=== PATIENT | male | born 1995 | race Caucasian/White ===

== ENCOUNTER 2022-11-13 05:36 | Outpatient (CLI) | payer SELFPAY | END 2022-11-13 05:37 | disposition critical access hospital (66) | LOC: EMS 05:36 | DX: I46.9 Cardiac arrest, cause unspecified (principal) | CPT/HCPCS: A0425; A0429 ==

== ENCOUNTER 2022-11-13 05:52 | Emergency (ER) | payer SELFPAY ==
[2022-11-13 06:10] VITALS: BP 116/91
[2022-11-13] MEDS ORDERED: NALOXONE HCL NASAL SPRAY KIT NAS STA (06:18)
--- NOTE | 2022-11-13 06:18 | ED Physician Documentation ---
PD HPI ALTERED MENTAL STATUS - Stated complaint Stated Complaint: OD - Chief complaint Chief Complaint: Cardiac - Additional information Additional information: HPI/ROS is very limited , as patient is adamant on leaving even prior to my eval uation. ALYSSA. HPI from information given by patient as well as EMS report. Patient says he was offered something to smoke, patient says "blue stuff" (per patient), by a female acquaintance earlier erika . Patient says he is confident the substance was fentanyl. He says he has never used any illicit drugs/substances in the past. He next remembers waking up on scene with EMS attending to him. EMS says that friend had called 911 due to patient being found unconscious, unresponsive, and not breathing. CPR was reportedly started prior to EMS arrival by friends with 911 instruction to do so. EMS found patient unresponsive and apneic, administered narcan intravenously with gradual but steady improvement in mental status. EMS called to ED and I took this call regarding transport; EMS indicated to me that patient was AAOx2 and declining transport to ED. I advised EMS to strongly encourage patient to allow EMS to bring him to ED , but that he can refuse provided he achieves AAOx3. I advised them to recontact me if he continues to refuse but is not AAOx3. EMS was able to convince patient of the import of coming to ED for this event. By the time I was able to evaluate patient in ED, I find him AAOx3, having ripped out his LUE IV immediately prior to my entry (there were many drops of his blood splattered on the floor around him). He apologized and then immediately demanding to leave ED. Nonetheless, he was willing to provide the HPI above. He says he is not having any symptoms, "I feel fine" (per patient). Review of Systems Unable to obtain: Other (demanding to leave but answers a very few ROS questions) Respiratory: denies: Dyspnea Psychiatric: denies: Depressed, Suicidal PD PAST MEDICAL HISTORY - Past Medical History Past Medical History: No - Allergies Allergies/Adverse Reactions: Allergies Allergy/AdvReac Type Severity Reaction Status Date / Time No Known Drug Allergies Allergy Verified 11/13/22 06:10 PD ED PE NORMAL - Vitals Vital signs reviewed: Yes - General General: Alert and oriented X 3, No acute distress, Well developed/nourished - HEENT HEENT: PERRL, EOMI - Cardiac Cardiac: No murmur - Respiratory Respiratory: No respiratory distress, Clear bilaterally PD ED PE EXPANDED - Cardiac Cardiac: Tachy, Regular Rhythm Results - Vitals Vitals: Oxygen O2 Source Room air PD Medical Decision Making - ED course Complexity details: considered differential, d/w patient ED course: Patient repeatedly insisting on leaving ED shortly after ED arrival. Despite this, he is cooperative with brief exam and answers some HPI/ROS questions. He is polite but firm in wanting to leave. He exhibits willingness to listen to my concerns regarding this case/scenario, particularly that the narcan (reversal agent) saved his life tonight , but that it might wear off before the underlying effects of fentanyl (particularly some increasingly common forms of fentanyl, such as sufentanyl, carfentanyl) wear off. In other words, if he leaves now, his level of consciousness could again decrease along with his respiratory rate, blood pressure, and pulse, culminating in . He expresses understanding of this, and does seem frightened by this, but still insists on leaving. He says he will be watched by friends tonight, such as a friend who is in [place] waiting to drive patient home. Patient is provided with a nasal Narcan kit and instructed on its use. I instructed him to contact his PMD to arrange for next available appointment to discuss this event and explore options for treatment if he is having problems with substance use/abuse. I also encouraged him to return to ED at any time he feels he needs to be reevaluated. Departure - Departure Disposition: 07 Against Medical Advice Clinical Impression: Overdose Condition: Good Instructions: ED Overdose Accidental Comments: You have opted to leave the emergency department AGAINST MEDICAL ADVICE. As we discussed, my concern is that the medication that was given before you came to the emergency department (Narcan) which is the reversal agent for opiate overdose, will wear off before the effects of the opiate have worn off. In other words, you might slip back into unconsciousness and your breathing might slow down again, possibly stopping completely. The medics reported to me that you required CPR prior to their arrival, and the only reason that you are awake and alert and alive was due to the reversal agent (Narcan). You have been provided with some Narcan spray which is given nasally. You should give this to whoever will be watching you today and instruct them to administer it if you seem to fall asleep but that they cannot wake you back up. Please return to the emergency department anytime that you want to be reevaluated. Discharge Date/Time: 11/13/22 06:30
== END 2022-11-13 06:30 | disposition left against medical advice (07) ==
LOC: ED 05:52
DX: T40.411A Poisoning by fentanyl or fentanyl analogs, accidental (unintentional), initial encounter (principal); R40.4 Transient alteration of awareness
CPT/HCPCS: 99283; 99284; G2215